=== PATIENT | female | born 1995 | race Caucasian/White ===

== ENCOUNTER → 2024-02-05 06:46 | Outpatient (REF) | payer BC, SELFPAY ==
[2024-02-05 07:36] LABS: Glucose 92 mg/dl (70-99); HDL Cholesterol 51 mg/dl; LDL Cholesterol, Calculated 116 mg/dl; Total Cholesterol 182 mg/dl (50-199); Triglyceride 79 mg/dl (10-149); Very Low Density Lipoprotein 15 mg/dl (0-30)
== END ==
LOC: REG 06:46
PROVIDERS: ATTENDING PHYSICIAN Nurse Practitioner Family
DX: Z00.00 Encounter for general adult medical examination without abnormal findings (principal)
CPT/HCPCS: 36415; 80061; 82947